=== PATIENT | male | born 1985 | race Caucasian/White ===

== ENCOUNTER 2021-04-06 20:32 | Emergency (ER) | payer SELFPAY ==
[~2021-04-06] VITALS: Ht 160 cm; Wt 49.0 kg
[2021-04-06 20:53] VITALS: BP_SYST 113
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
--- NOTE | 2021-04-06 21:15 | NUR ---
Dr. Coronado at bedside.
--- NOTE | 2021-04-06 22:22 | NUR ---
Dr. Muñoz assessing pt.
[2021-04-06 22:23] LABS: BASOPHILS % (AUTO) 0.3 % (0.0-2.0); EOSINOPHILS # (AUTO) 0.1 K/uL (0.0-0.4); EOSINOPHILS % (AUTO) 0.3 % (0.0-4.0); HEMATOCRIT 41.7 % (36-54); HEMOGLOBIN 14.5 g/dL (14.0-18.0); LYMPHOCYTES # (AUTO) 1.4 K/uL (1.0-5.5); LYMPHOCYTES % (AUTO) 7.4 % (20.5-51.5); MEAN CORPUSCULAR HEMOGLOBIN 28 pg (27-31); MEAN CORPUSCULAR HGB CONC 35 % (32-36); MEAN CORPUSCULAR VOLUME 80 fL (79.0-98.0); MONOCYTES # (AUTO) 1.5 K/uL (0.0-1.0); MONOCYTES % (AUTO) 7.8 % (1.7-9.3); NEUTROPHILS # (AUTO) 15.7 K/uL (1.8-7.7); NEUTROPHILS % (AUTO) 84.2 % (40.0-70.0); PLATELET COUNT (AUTO) 473 K/uL (130-430); RED BLOOD CELL COUNT(AUTO) 5.21 MIL/uL (4.2-6.2); RED CELL DISTRIBUTION WIDTH 13.2 % (9.0-15.0); WHITE BLOOD COUNT (AUTO) 18.6 K/uL (4.8-10.8)
[2021-04-06] MEDS ORDERED: ONDANSETRON 4 MG ODT TAB ONE (22:30)
--- NOTE | 2021-04-06 22:38 | NUR ---
Pt c/o nausea. Emesis bag provided. Pt given Zofran 4 mg ODT per verbal order Dr. Muñoz.
[2021-04-06 23:02] LABS: CALCIUM 9.4 mg/dL (8.4-11.0); CREATININE 0.87 mg/dL (0.55-1.30); POTASSIUM 3.4 mmol/L (3.5-5.1)
[2021-04-06 23:07] LABS: ALBUMIN 4.6 g/dL (3.4-4.8); TOTAL BILIRUBIN 0.8 mg/dL (0.0-1.0)
--- NOTE | 2021-04-06 23:10 | NUR ---
Pt placed to ER hallway bed 1. Officer Olivier at bedside. Pt cuffed to right side rail. Pt denies c/o pain or discomfort. NAD.
[2021-04-06] MEDS ORDERED: BUPRENORPHINE HCL/NALOXONE HCL 2-0.5 MG 1 EACH TAB.SUBL SL ONE (23:50)
[2021-04-06] MEDS: BUPRENORPHINE HCL/NALOXONE HCL 2-0.5 MG 1 EACH TAB.SUBL SL ONE ×2 (23:54→23:58)
[2021-04-06] MEDS: ACETAMINOPHEN 500 MG TABLET PO ONE (23:54)
[2021-04-06] MEDS ORDERED: ACETAMINOPHEN 500 MG TABLET ONE (23:54)
--- NOTE | 2021-04-07 00:20 | NUR ---
Pt restless, turning sided to side on stretcher. Pt denies c/o pain or discomfort. VSS. Officer Olivier as bedside. Handcuffs rotated to Left hand and attached to left side rail.
--- NOTE | 2021-04-07 00:40 | NUR ---
Pt to CT in stable condition. Accompanied by Officer Olivier.
--- NOTE | 2021-04-07 00:55 | NUR ---
Pt returns from CT. Officer Olivier at bedside. No needs verbalized at this time.
--- NOTE | 2021-04-07 01:30 | NUR ---
CT results received. Impression: Pneumomediastinum. Results given to Dr. Muñoz. Arrangements in progress for pt transfer to higher level of care.
--- NOTE | 2021-04-07 01:35 | NUR ---
Pt placed on bedside patient monitor with pulse oximetry. VSStan. SHAHEEN.
--- NOTE | 2021-04-07 01:50 | NUR ---
Unsuccessful EKG attempts x 2. Pt moving about in stretcher, restless. Denies c/o pain or discomfort, VSS.
--- NOTE | 2021-04-07 02:45 | NUR ---
Officer Olivier replaced by Officer Joon. Handcuffs rotated to Right wrist to right siderail. Pt denies c/o pain or discomfort, no needs verbalized.
--- NOTE | 2021-04-07 03:00 | NUR ---
Specimen for Covid-19 antigen collected and sent to lab.
[2021-04-07 03:12] VITALS: BP_SYST 142
--- NOTE | 2021-04-07 03:12 | NUR ---
Patient to be transferred to [facility]. Is being transferred due to higher level of care. Receiving facility has accepting physician and available space. ER physician has signed transfer form. Patient or responsible democrat has agreed to transfer and signed form. Patient belongings inventoried and will be sent with patient. Copy of nursing notes, lab reports, EKG, Physicians Orders and X-rays to be sent with patient. Report called to SAMANTA Tabares at receiving facility. Receiving physician is Dr. Pavon. Pt leaves in stable condition in care of [facility].
== END 2021-04-07 03:12 | disposition short-term general hospital (02) ==
LOC: SED 20:32
DX: J98.2 Interstitial emphysema (principal); Z20.822 Contact with and (suspected) exposure to COVID-19
CPT/HCPCS: 36415; 70450; 70486; 74176; 76376; 80053; 83690; 85025; 87426; 99285; Q0162